=== PATIENT | female | born 1995 | race Caucasian/White ===

== ENCOUNTER 2016-07-30 06:36 | Outpatient (CLI) | payer BC ==
[~2016-07-30] VITALS: Ht 154.9 cm; Wt 104.5 kg
[2016-07-30 07:51] LABS: BASOPHIL % 0.2 %; EOSINOPHIL # 0.1 K/uL (0.0-0.5); EOSINOPHIL % 0.9 %; HEMATOCRIT 34.5 % (33.0-46.0); HEMOGLOBIN 11.2 g/dL (11.0-15.0); IMMATURE GRANULOCYTE # 0.1 K/uL (0.0-0.3); IMMATURE GRANULOCYTE % 0.9 %; LYMPHOCYTE # 2.4 K/uL (0.8-4.0); LYMPHOCYTE % 19.1 %; MCHC 32.5 gm/dL (32.0-36.5); MCV 86.3 fl (83.0-98.0); MONOCYTE # 0.7 K/uL (0.0-1.0); MONOCYTE % 5.8 %; NEUTROPHIL % 73.1 %; NRBC % 0 /100WBC (0-0.00); PLATELET COUNT 261 K/uL (150-450); RDW-CV 14.9 % (11.9-14.6); WBC 12.3 K/uL (4.0-11.0)
[2016-07-30] MEDS ORDERED: PRENATAL 1+1)(P1 TAB PO (08:05)
[2016-07-30] MEDS ORDERED: ZYRTEC10 MG PO (08:05)
[2016-07-30] MEDS ORDERED: FEOSOL325 MG PO (08:05)
[2016-07-30] MEDS ORDERED: FLONASE 50 MCG/16 GM NOSE (08:06)
--- NOTE | 2016-07-30 17:58 | NUR ---
Last VS: T:98.4 P:103 R: 16 BP: 148/68 Pain rating:occ cramping . Last pain med: none Medicated at: Effective: FHT: 150 Dilatation: ft Effacement %: thick Station: -2 Significant event: .PGE2 gel x3 last at 1630. Update MD at 2000 for orders for Pitocin. 2nd LR chikis 1200 in IV.
== END 2016-07-31 09:50 | disposition disaster alternative care site (69) ==
LOC: GOBS 06:36 → GOBM 06:36 → GOBS 06:37 → GOBM 07-31 09:50
PROVIDERS: Obstetrics & Gynecology
DX: O48.0 Post-term pregnancy (principal); Z3A.40 40 weeks gestation of pregnancy
CPT/HCPCS: G0463; J2590; J7120

== ENCOUNTER 2016-08-07 10:19 | Inpatient (IN) | payer BC ==
[~2016-08-07] VITALS: Ht 157.5 cm; Wt 103.2 kg
--- NOTE | ~2016-08-07 | DS ---
PATIENT'S NAME: SOFY THOMASON [facility] AGE: 20 Y [address] ROOM: [address] [address] LOCATION: GOBS ADMIT DATE: 08/07/2016 Discharge Summary DISCHARGE DATE: 08/10/2016 FAMILY PHYSICIAN: Madeline Larose MD ATTENDING PHYSICIAN: Sherlyn Mendoza FINAL DIAGNOSES: 1. Intrauterine at 41 weeks and 5 days. 2. Labor. 3. Arrest of dilation. 4. Gestational hypertension. 5. Status post primary low transverse section. 6. hemorrhage. 7. Anemia. PROCEDURES PERFORMED: During admission, primary low transverse section. REASON FOR ADMISSION: This patient is a 20-year-old, 1 female, who was admitted in active labor. She had an uncomplicated . She did have elevated blood pressures upon arrival, but no other evidence of preeclampsia. She was given the diagnosis of gestational hypertension. The patient had artificial rupture of membranes followed by Pitocin augmentation. She had arrest of dilation. Please see the operative report. She had a primary low transverse section. She delivered a male , Apgars were 8 and 9. Weight was 8 pounds and 3 ounces. Postoperatively, the patient had a hemorrhage for uterine atony and received Methergine twice. Her hemoglobin was 11.1 when she was admitted and 7.2 on day #1. She was able to ambulate well and urinating without difficulty; and she was therefore sent home on iron sulfate for her anemia. DISCHARGE MEDICATIONS: Please see her medication list. DISCHARGE INSTRUCTIONS: The patient was given routine instructions and I will see her back in 2 and 6 weeks. MD DAVON PETERS/joseph /[id number] d: 08/23/16 1142 t: 09/01/16 0851, DISCHARGE SUMMARY
--- NOTE | ~2016-08-07 | OR ---
PATIENT'S NAME: SOFY THOMASON [facility] AGE: 20 Y [address] ROOM: [place] [address] LOCATION: GOBS ADMIT DATE: 08/07/2016 OR/Procedure Report DISCHARGE DATE: FAMILY PHYSICIAN: HANS LAROSE MD ATTENDING PHYSICIAN: HANS LAROSE SURGEON: Sherlyn Mendoza MD RESERVATIONIST: DATE OF PROCEDURE: 08/07/2016 PREOPERATIVE DIAGNOSES: 1. Intrauterine at 41 weeks 5 days. 2. Arrest of dilation. 3. Gestational hypertension. POSTOPERATIVE DIAGNOSES: 1. Intrauterine at 41 weeks 5 days. 2. Arrest of dilation. 3. Gestational hypertension. PROCEDURE PERFORMED: Primary low transverse section. RESERVATIONIST SURGEON: Dr. Larose. Dr. Larose was necessary for adequate visualization of tissues and delivery of the fetus. ANESTHESIA: General. ESTIMATED BLOOD LOSS: 300 mL. FINDINGS: Male infant. scores 8 and 9. Weight 8 pounds 3 ounces. Intact placenta, 3-vessel cord. Clear amniotic fluid. Normal uterus, tubes, and ovaries. DRAINS: Brito. SPECIMENS: Placenta. INDICATIONS: The patient is a 20-year-old 1 female, who presented to Labor and Delivery at 41 weeks 5 days, who presented to Labor and Delivery in active labor. She also had elevated blood pressures upon her arrival. She has a history of THC use this , but otherwise the itself was uncomplicated. She progressed to about 6 cm, had artificial rupture of membranes, and then she did not have any further cervical regional climate change analyst a few hours. Therefore, Pitocin was added. She still did not have any further cervical change, and station had actually gotten higher, and the nurse called me and thought that she actually felt possibly a hand in front of the head, so PATIENT'S NAME: SOFY THOMASON [facility] AGE: 20 Y [address] ROOM: [place] [address] LOCATION: [facility] ADMIT DATE: 08/07/2016 OR/Procedure Report DISCHARGE DATE: FAMILY PHYSICIAN: HANS LAROSE MD ATTENDING PHYSICIAN: HANS LAROSE I presented and checked the patient. I did not feel a hand in front of the head, but I felt what I thought to be a brow presentation. Station was -3, and she just had no change in descent or dilation over several hours, and the decision was made for section. The risks, benefits and alternatives to the procedure were discussed with the patient. She understood the risks to be but not be limited to bleeding, infection and damage to the bowel, bladder and surrounding organs and desired to proceed. Also, of note, she had failed an induction in the previous week. DESCRIPTION OF PROCEDURE: The patient was taken to the operating room. Because her epidural was not adequate, general anesthesia was performed. She was prepped and draped in a dorsal supine position with a leftward tilt. A Pfannenstiel skin incision was made. It was carried down through to the fascia. The fascia was incised. The fascial incision was extended. The rectus muscles were . The peritoneum was entered. The uterus was incised in a low transverse fashion with a scalpel. The uterine incision was extended with vertical traction. The surgeon's hand was inserted into the uterus. The head delivered. The rest of the fetus delivered. The nose and mouth were bulb suctioned. The cord was clamped and cut. The infant was handed to the awaiting team. Cord blood was drawn. The placenta delivered with manual traction. Uterus was exteriorized and cleared of clots and debris. It was repaired with 0 Vicryl in a running locked fashion. It was returned to the abdomen. The gutters were cleared of clots and debris. The fascia was repaired with 0 Vicryl. The subcutaneous adipose tissue was irrigated and then reapproximated with 2-0 Vicryl suture. The skin was closed with 4-0 Vicryl suture. COMPLICATIONS: None. CONDITION: Mother stable in room. MD DAVON PETERS/joseph /[id number] d: 08/08/16 1356 t: 08/09/16 1123, OPERATIVE SUMMARY
[~2016-08-07 10:19] MED LIST: FEOSOL325 MG PO; FLONASE 50 MCG/16 GM NOSE; PRENATAL 1+1)(P1 TAB PO; ZYRTEC10 MG PO
[2016-08-07 11:20] LABS: BASOPHIL % 0.1 %; EOSINOPHIL # 0.1 K/uL (0.0-0.5); EOSINOPHIL % 0.5 %; HEMATOCRIT 34.5 % (33.0-46.0); HEMOGLOBIN 11.1 g/dL (11.0-15.0); IMMATURE GRANULOCYTE # 0.2 K/uL (0.0-0.3); LYMPHOCYTE # 2.2 K/uL (0.8-4.0); LYMPHOCYTE % 11.7 %; MCH 28.2 pg (27.0-34.0); MCHC 32.2 gm/dL (32.0-36.5); MCV 87.8 fl (83.0-98.0); MONOCYTE # 1.1 K/uL (0.0-1.0); MONOCYTE % 5.8 %; MPV 10.1 fl (9.4-12.4); NEUTROPHIL # (ANC) 14.9 K/uL (1.8-7.8); NEUTROPHIL % 80.9 %; NRBC % 0 /100WBC (0-0.00); PLATELET COUNT 255 K/uL (150-450); RBC 3.93 M/uL (3.50-5.00)
[2016-08-07 11:22] LABS: WBC 18.4 K/uL (4.0-11.0)
[2016-08-07 12:22] LABS: BARBITURATE NEGATIVE (NEGATIVE); COCAINE NEGATIVE (NEGATIVE)
[2016-08-07 12:24] LABS: AMPHETAMINE NEGATIVE (NEGATIVE)
[2016-08-07 12:25] LABS: OPIATES NEGATIVE (NEGATIVE)
[2016-08-07 12:32] LABS: ALBUMIN 2.3 gm/dL (3.5-5.0); ALK PHOS 174 IU/L (33-138); ALT 15 IU/L (12-78); ANION GAP 14.1 (10.0-19.0); AST 15 IU/L (10-40); BLOOD UREA NITROGEN 8 mg/dL (6-24); CALCIUM 8.5 mg/dL (8.5-10.5); CHLORIDE 111 mMol/L (96-110); CO2 20 mMol/L (22-32); CREATININE 0.5 mg/dL (0.5-1.1); ESTIMATED GFR (MDRD EQUATION) > 60; POTASSIUM 4.1 mMol/L (3.7-5.1); SODIUM 141 mMol/L (135-145); TOTAL BILIRUBIN 0.2 mg/dL (0.0-1.5); TOTAL PROTEIN 6.7 g/dL (6.0-8.4)
--- NOTE | 2016-08-08 05:04 | NUR ---
Last VS: T:98.5 P:95 R: 18 BP: 148/75 Pain rating: . Last pain med: Percocet Medicated at: Effective: Yes R Lung sounds: , L Lung sounds: Fundus:firm 1 below, , Lochia:small to moderate , Breasts: soft Nipples: flat Incision: microfoam dressing is dry, clean and intact Bowel sounds: Passing flatus: no Voiding well: Significant event: VSS. Toradol due at 0735; percocet due at 8. patient has had times of increased bleeding, patient report right leg is still numb. Brito cath is still intact and patent draining yellow urine. She recieved 2 doses of methergine and 2 bags of pitocin.
[2016-08-08 05:29] LABS: MCV 87.8 fl (83.0-98.0); MPV 9.5 fl (9.4-12.4); PLATELET COUNT 231 K/uL (150-450); RDW-CV 15.4 % (11.9-14.6)
[2016-08-08 05:31] LABS: HEMOGLOBIN 7.2 g/dL (11.0-15.0); MCH 29.3 pg (27.0-34.0); MCHC 33.3 gm/dL (32.0-36.5); RBC 2.46 M/uL (3.50-5.00); WBC 28.7 K/uL (4.0-11.0)
[2016-08-08 05:32] LABS: HEMATOCRIT 21.6 % (33.0-46.0)
[2016-08-08 06:06] LABS: ABSOLUTE NEUTROPHIL CT (ANC) 26.4 K/uL (1.8-7.8); BANDED NEUTROPHILS % 21 %; LYMPHOCYTE # 0.3 K/uL (0.8-4.0); LYMPHOCYTE % 1 %; SEGMENTED NEUTROPHIL # 20.4 K/uL (1.8-7.8); SEGMENTED NEUTROPHIL % 71 %
--- NOTE | 2016-08-08 14:43 | NUR ---
Met wiht patient and mom at bedside today. I introduced myself and explained my role with the CM department. Patient and FOB live in an apartment together. Patient continues to be covered under her mom's commercial insurance, but baby Lloyd is not covered under that plan. Patient states FOB is looking into getting baby onto an insurance plan but neither he nor patient have pursued Medicaid for the baby. I asked permission to send a referral to [facility] so they can help start the Medicaid process for baby and Mehrdad agreed to this. I provided Mehrdad with a list of community resources here in [place], voucher to the [facility] for baby items, and reading material on post depression. I also reviewed the signs and symptoms of post depression with her. I spoke to Ranjana with [employer] at 1320 and asked her to meet with patient to start the Medicaid application for baby. No other needs at this time. Will continue to follow.
--- NOTE | 2016-08-08 17:20 | NUR ---
Significant Event: Follow up: VSS, hbg 7.2, from 11.1, sl dc'd. Ambulates frequently, voiding well, & no clots reported. Showered , abd dressing removed, incision int. 2+ edema in lower legs, leg pumps will need to go on @ bedtime. Medicated with Percocet 1) @ 1549, next dose @ 1944. Needs paternity papers.
--- NOTE | 2016-08-09 04:29 | NUR ---
VSS, FUNDUS FIRM, AT UMBILICUS, SMALL FLOW. INCISION LOOKS GOOD. NEEDS TO SIGN PATERNITY PAPERS, TURN IN CERTIFICATE, AND WATCH VIDEOS. VIDEOS IN ROOM. 1 PERCOCET GIVEN AT 0049. PT UP AD IRMA IN ROOM. HOME TOMORROW.
--- NOTE | 2016-08-09 11:55 | NUR ---
Spoke to Minerva with [employer]. I just need to see if patient has signed the paperwork they left yesterday and then bring back to them. 1200 Patient and significant other sleeping. 1215 Nurse Gauri informed me patient has questions about [employer] forms. 1330 Left a message for Ranjana with [employer]. 1400 Spoke to Ranjana she will try to touchbase with them today.
[2016-08-10] MEDS ORDERED: APNO TOP (09:56)
[2016-08-10] MEDS ORDERED: MOTRIN800 MG PO (09:56)
[2016-08-10] MEDS ORDERED: PERCOCET 5-3251 EACH PO (09:57)
== END 2016-08-10 14:45 | disposition disaster alternative care site (69) | DRG 766 ==
LOC: GOBM 10:19 → GOBS 10:20 → GOBM 10:25 → GOBS 10:26
PROVIDERS: Obstetrics & Gynecology; ADMIT Obstetrics & Gynecology
PROC: 10907ZC Drainage of Amniotic Fluid, Therapeutic from Products of Conception, Via Natural or Artificial Opening (ICD-10-PCS; principal; 2016-08-07)
PROC: 10D00Z1 Extraction of Products of Conception, Low, Open Approach (ICD-10-PCS; principal; 2016-08-07)
DX: O62.1 Secondary uterine inertia (principal); O16.4 Unspecified maternal hypertension, complicating childbirth; O32.3XX0 Maternal care for face, brow and chin presentation, not applicable or unspecified; Z37.0 Single live birth; Z3A.41 41 weeks gestation of pregnancy
CPT/HCPCS: J0690; J1885; J2210; J2270; J2590; J3010; J7120